=== PATIENT | female | born 1995 | race Caucasian/White ===

== ENCOUNTER → 2022-08-06 | Outpatient (CLI) | payer OTHER, SELFPAY ==
[2022-08-06 13:41] LABS: Absolute Lymphocyte Count 3.39 X10^3/uL (0.83-4.51); Absolute Neutrophil Count 7.5 X10^3/uL (2.0-7.7); Basophil# 0.05 X10^3/uL; Basophil% 0.4 % (0-1); Eosinophil# 0.11 X10^3/uL; Eosinophils% 0.9 % (0-5); Hematocrit 39.3 % (37-47); Hemoglobin 13.3 g/dL (12.0-15.0); Lymphocyte # 3.39 X10^3/ul (0.83-4.51); Lymphocyte % 28.9 % (19-41); Mean Corp Hgb Conc 33.8 g/dL (32-36); Mean Corpuscular Hgb 31.1 pg (27.0-32.0); Mean Platelet Vol. 9.6 fl (6.2-12.0); NRBC Flagged by Analyzer 0 % (0-5); Neutrophil # 7.46 X10^3/uL (2.7-7.7); Neutrophil % 63.5 % (47-70); Platelet Count 356 K/mm3 (150-450); RBC Distribution Width CV 12.6 % (11.6-14.6); RBC Distribution Width SD 42.2 fl (35.1-43.9); Red Blood Count 4.27 M/mm3 (4.2-5.4); White Blood Count 11.7 K/mm3 (4.4-11.0)
[2022-08-06 13:57] LABS: Erythrocyte Sedimentation Rate 5 mm/hr (0-30)
[2022-08-06 14:10] LABS: ALB/GLOB Ratio 1.5 RATIO (0.9-2.4); AST(SGOT) 14 U/L (15-37); Alanine Aminotransfer ALT/SGPT 18 U/L (13-56); Albumin, Serum 4.3 g/dL (3.2-5.0); Alkaline Phosphatase 65 U/L (45-117); Anion Gap 6 (5-15); BUN 11 mg/dL (7-18); BUN/Creat Ratio 14.8 RATIO (10-20); CRP < 2.90 mg/L (0.0-3.0); Calcium,Total 9.2 mg/dL (8.5-10.1); Chloride 108 mmol/L (98-107); Creatinine, Serum 0.74 mg/dL (0.55-1.02); EST Glomerular Filtration Rate 100 mL/min (>60); Est Glom Filt Rate - Afr Amer 121 mL/min (>60); Globulin 2.9 g/dL (2.2-4.2); Glucose 85 mg/dL (74-106); LDH 176 U/L (84-246); Potassium 3.4 mmol/L (3.5-5.1); Protein, Total 7.2 g/dL (6.4-8.2); Sodium Level 139 mmol/L (136-145)
[2022-08-08 12:08] LABS: Anti-Centromere B Ab <0.2 AI (0.0-0.9); Anti-Chromatin <0.2 AI (0.0-0.9); Anti-Jo <0.2 AI (0.0-0.9); Anti-Scleroderma-70 AB <0.2 AI (0.0-0.9); Anti-dsDNA Ab 2 IU/mL (0-9); RNP Ab 0.3 AI (0.0-0.9); SJOGREN'S Anti-SS-A test < 0.2 AI (0.0-0.9); SJOGREN'S Anti-SS-B test < 0.2 AI (0.0-0.9); Smith Ab <0.2 AI (0.0-0.9)
[2022-08-08 15:08] LABS: Endomysial Antibody IgA Negative (Negative); Immunoglobulin A 196 mg/dL (87-352); t-Transglutaminase IgA <2 U/mL (0-3)
[2022-08-11 21:07] LABS: Albumin 3.7 g/dL (2.9-4.4); Alpha-1-Globulins 0.2 g/dL (0.0-0.4); Alpha-2-Globulins 0.8 g/dL (0.4-1.0); Cytoplasmic Ab (C-ANCA) <1:20 titer (Neg:<1:20); Immunoglobulin A 182 mg/dL (87-352); Immunoglobulin E 36 IU/mL (6-495); Immunoglobulin G 682 mg/dL (586-1602); Immunoglobulin M 104 mg/dL (26-217); PROEL- TOTAL PROTEIN 6.7 g/dL (6.0-8.5); Perinuclear Ab (P-ANCA) <1:20 titer (Neg:<1:20)
== END | disposition home or self-care (01) ==
PROVIDERS: PCP Nurse Practitioner Family; Referring Provider Internal Medicine Gastroenterology; Visit Provider Internal Medicine Gastroenterology
DX: R11.10 Vomiting, unspecified (principal); R19.5 Other fecal abnormalities
CPT/HCPCS: 36415; 80053; 82533; 82784; 82785; 83516; 83615; 84165; 85025; 85652; 86140; 86225; 86235; 86255; 86256; 86334

== ENCOUNTER → 2022-08-07 | Outpatient (CLI) | payer OTHER, SELFPAY ==
[2022-08-13 14:10] LABS: Pancreatic Elastase, Fecal 176 (>200)
[2022-08-16 00:06] LABS: Calprotectin, Stool 22 ug/g (0-120)
== END | disposition home or self-care (01) ==
LOC: LABSPEC 15:13
PROVIDERS: PCP Nurse Practitioner Family; Visit Provider Internal Medicine Gastroenterology
DX: R11.10 Vomiting, unspecified (principal); R19.5 Other fecal abnormalities; K58.9 Irritable bowel syndrome, unspecified
CPT/HCPCS: 82653; 83630; 83993; 87177; 87209; 87329; 87493; 87506

== ENCOUNTER → 2022-08-29 | Outpatient (CLI) | payer OTHER, SELFPAY ==
--- NOTE | 2022-08-29 07:32 | RDU_ITS ---
Reason For Study: HTN Right Renal Artery Left Renal Artery Right renal artery ostium 95.7/32.0 Left renal artery ostium 92.6/35.6 RSV/EDV. PSV/EDV. Right renal artery proximal Left renal artery proximal PSV/EDV 119.8/43.0 PSV/EDV. 118.9/37.7 . Right renal artery mid 128.6/49.6 Left renal artery mid 120.5/43.7 PSV/EDV. PSV/EDV . Right renal artery distal Left renal artery distal 89.2/34.2 113.2/45.2 PSV/EDV. PSV/EDV. Right Renal Parenchyma Left Renal Parenchyma Upper Pole Medula 44.1/22.2 Left upper pole medulla 56.6/23.7 PSV/EDV. PSV/EDV . Right upper pole medulla EDR 0.50 . Left upper pole medulla EDR 0.40 . Right upper pole medulla R.I. Left upper pole medulla R.I. 0.58 . 0.50 . UP Cortex 28.1/11.6 PSV/EDV. Upper [place] Cortx 29.8/13.4 PSV/EDV. Left upper pole cortex EDR 0.40 . Right upper pole cortex EDR 0.40 . Left upper pole cortex R.I. 0.59 . Right upper pole cortex R.I. 0.55 . Left lower Pole medulla 50.0/22.6 Right lower Pole medulla 50.7/22.2 PSV/EDV . PSV/EDV . Left lower pole medulla EDR 0.50 . Right lower pole medulla EDR 0.40 . Left lower pole medulla R.I. 0.55 . Right lower pole medulla R.I. Lower Pole Cortx 24.3/10.8 PSV/EDV. 0.56 . Left lower pole cortex EDR 0.40 . Lower Pole Cortex 27.7/11.2 Left lower pole cortex R.I. 0.56 . PSV/EDV. Left Renal Hilar Right lower pole cortex EDR 0.40 . LT Hilar avg 209.0/55.4 PSV/EDV . Right lower pole cortex R.I. 0.60 . Left hilar acceleration time 30 Right Renal Hilar m/sec. Right Hilar avg 103.3/39.7 PSV/EDV. Left Renal Dimensions Right hilar acceleration time 30 Left kidney size 10.39 cm . m/sec. Left cortical dimension 1.54 cm . Right Renal Dimensions Right kidney size 10.63 cm . Right cortical dimension 1.49 cm . Aorta Proximal abdominal aorta 1.55 cm . Proximal abdominal aorta peak systolic velocity is 106.7 cm/sec . Distal abdominal aorta 1.72 cm . Distal abdominal aorta peak systolic velocity is 69.3 cm/sec . VL/Renal Artery Duplex Ultrasound Interpretation Summary Right renal artery patent with normal velocities and no evidence of stenosis. Left renal artery patent with normal velocities and no evidence of stenosis. Right renal vein patent Left renal vein patent Right kidney normal in size Left kidney normal in size Ordering Physician: Henrique Andersen Referring Physician: Naye Giraldo Performed By: Jacob Nieto RVT
== END | disposition home or self-care (01) ==
LOC: CVS 07:31
PROVIDERS: PCP Nurse Practitioner Family; Referring Provider Internal Medicine Gastroenterology; Visit Provider Internal Medicine Gastroenterology
DX: R19.5 Other fecal abnormalities (principal); R11.10 Vomiting, unspecified; I10 Essential (primary) hypertension
CPT/HCPCS: 93975

== ENCOUNTER → 2022-09-02 | Outpatient (CLI) | payer OTHER, SELFPAY | END | disposition home or self-care (01) | PROVIDERS: PCP Nurse Practitioner Family; Referring Provider Internal Medicine Gastroenterology; Visit Provider Internal Medicine Gastroenterology | DX: R19.5 Other fecal abnormalities (principal) | CPT/HCPCS: 36415 ==

== ENCOUNTER → 2022-12-08 | Outpatient (CLI) | payer OTHER, SELFPAY ==
[2022-12-08 15:34] LABS: EXAGEN MAILED SPECIMEN
[2022-12-08 17:33] LABS: Absolute Lymphocyte Count 3.67 X10^3/uL (0.83-4.51); Absolute Neutrophil Count 11.3 X10^3/uL (2.0-7.7); Basophil# 0.06 X10^3/uL; Basophil% 0.4 % (0-1); Eosinophil# 0.03 X10^3/uL; Eosinophils% 0.2 % (0-5); Hematocrit 40.9 % (37-47); Hemoglobin 13.7 g/dL (12.0-15.0); Lymphocyte # 3.67 X10^3/ul (0.83-4.51); Lymphocyte % 22.7 % (19-41); Mean Corp Hgb Conc 33.5 g/dL (32-36); Mean Corpuscular Hgb 31.1 pg (27.0-32.0); Mean Platelet Vol. 9.6 fl (6.2-12.0); Monocyte# 1.02 X10^3/uL; Monocyte% 6.3 % (0-10); NRBC Flagged by Analyzer 0 % (0-5); Neutrophil # 11.33 X10^3/uL (2.7-7.7); Neutrophil % 70.1 % (47-70); Platelet Count 397 K/mm3 (150-450); RBC Distribution Width CV 13.3 % (11.6-14.6); RBC Distribution Width SD 45.8 fl (35.1-43.9); White Blood Count 16.2 K/mm3 (4.4-11.0)
[2022-12-08 18:05] LABS: ALB/GLOB Ratio 1.2 RATIO (0.9-2.4); AST(SGOT) 17 U/L (15-37); Alanine Aminotransfer ALT/SGPT 22 U/L (13-56); Albumin, Serum 4.5 g/dL (3.2-5.0); Alkaline Phosphatase 74 U/L (45-117); Anion Gap 5 (5-15); BUN 7 mg/dL (7-18); BUN/Creat Ratio 9.8 RATIO (10-20); Calcium,Total 9.9 mg/dL (8.5-10.1); Chloride 106 mmol/L (98-107); Creatinine, Serum 0.71 mg/dL (0.55-1.02); EST Glomerular Filtration Rate 105 mL/min (>60); Est Glom Filt Rate - Afr Amer 126 mL/min (>60); Globulin 3.7 g/dL (2.2-4.2); Glucose 87 mg/dL (74-106); Potassium 3.1 mmol/L (3.5-5.1); Protein, Total 8.2 g/dL (6.4-8.2); Sodium Level 138 mmol/L (136-145)
[2022-12-08 18:06] LABS: Protein, Urine (Random) < 6.0 mg/dL (<11.9); Protein:Creat Ratio 136 mg/g CRE (0-200)
[2022-12-08 18:10] LABS: Color, Urine Yellow (Yellow); Glucose, Dipstick Normal (Normal); Ketone-Dipstick 5 mg/dl (Negative); Leukocyte Esterase-Dipstick Negative /ul (Negative); Nitrite-Dipstick Negative (Negative); Occult Blood-Urine 50 /ul (Negative); Protein-Dipstick Negative (Negative); Urine Bilirubin Dipstick Negative (Negative); Urine Clarity Clear (Clear); Urine Urobilinogen Normal (Normal); Urine pH 6.5 (5.0 - 8.0)
[2022-12-08 18:29] LABS: Hepatitis B Surface Antibody Non-Reactive; Hepatitis B Surface Antigen Non-Reactive (Nonreactive); Hepatitis C Antibody Non-Reactive (Nonreactive)
== END | disposition home or self-care (01) ==
PROVIDERS: PCP Nurse Practitioner Family; Referring Provider Internal Medicine Rheumatology; Visit Provider Internal Medicine Rheumatology
DX: M06.4 Inflammatory polyarthropathy (principal); R76.8 Other specified abnormal immunological findings in serum; F32.A Depression, unspecified; F41.0 Panic disorder [episodic paroxysmal anxiety]
CPT/HCPCS: 36415; 80053; 81002; 82570; 84156; 85025; 86706; 86803; 87340

== ENCOUNTER → 2023-01-19 | Outpatient (CLI) | payer OTHER, SELFPAY ==
[2023-01-19 15:20] LABS: Absolute Lymphocyte Count 4.26 X10^3/uL (0.83-4.51); Basophil# 0.08 X10^3/uL; Basophil% 0.4 % (0-1); Eosinophil# 0.04 X10^3/uL; Eosinophils% 0.2 % (0-5); Hematocrit 41.5 % (37-47); Hemoglobin 13.6 g/dL (12.0-15.0); Lymphocyte # 4.26 X10^3/ul (0.83-4.51); Lymphocyte % 22.8 % (19-41); Mean Corp Hgb Conc 32.8 g/dL (32-36); Mean Corpuscular Volume 94.5 fL (81-99); Mean Platelet Vol. 10.1 fl (6.2-12.0); Monocyte# 1.23 X10^3/uL; Monocyte% 6.6 % (0-10); NRBC Flagged by Analyzer 0 % (0-5); Neutrophil # 12.98 X10^3/uL (2.7-7.7); Neutrophil % 69.5 % (47-70); Platelet Count 378 K/mm3 (150-450); RBC Distribution Width CV 13.4 % (11.6-14.6); RBC Distribution Width SD 47.1 fl (35.1-43.9); Red Blood Count 4.39 M/mm3 (4.2-5.4); White Blood Count 18.7 K/mm3 (4.4-11.0)
[2023-01-19 15:53] LABS: ALB/GLOB Ratio 1.4 RATIO (0.9-2.4); AST(SGOT) 17 U/L (15-37); Alanine Aminotransfer ALT/SGPT 17 U/L (13-56); Albumin, Serum 4.2 g/dL (3.2-5.0); Alkaline Phosphatase 68 U/L (45-117); Anion Gap 7 (5-15); BUN 9 mg/dL (7-18); BUN/Creat Ratio 11.8 RATIO (10-20); Calcium,Total 9.6 mg/dL (8.5-10.1); Chloride 105 mmol/L (98-107); Creatinine, Serum 0.76 mg/dL (0.55-1.02); EST Glomerular Filtration Rate 97 mL/min (>60); Est Glom Filt Rate - Afr Amer 117 mL/min (>60); Globulin 3.1 g/dL (2.2-4.2); Glucose 85 mg/dL (74-106); Potassium 3.2 mmol/L (3.5-5.1); Protein, Total 7.3 g/dL (6.4-8.2); Sodium Level 137 mmol/L (136-145)
== END | disposition home or self-care (01) ==
LOC: MTLAB 11:37
PROVIDERS: PCP Nurse Practitioner Family; Referring Provider Internal Medicine Rheumatology; Visit Provider Internal Medicine Rheumatology
DX: M06.4 Inflammatory polyarthropathy (principal); R76.8 Other specified abnormal immunological findings in serum
CPT/HCPCS: 36415; 80053; 85025

== ENCOUNTER → 2023-04-13 | Outpatient (CLI) | payer OTHER, SELFPAY ==
--- OUTSIDE RECORDS SUMMARY | 2023-04-13 14:07 | XMS RPT_ITS | CCD ---
Author Name Unknown Address [address] [facility] [address] [place] [address] Organization [facility] Care Team Providers Care Transportation Maintenance Worker Name Role Phone BRIGID CARBAJAL, NAYE Primary Care Physician BRIGID LAW FIRM RECEPTIONIST-IMPREGNATOR [employer], NAYE Attending Unavail able LORSON LAW FIRM RECEPTIONIST-IMPREGNATOR [employer], NAYE Primary Care Unavail able ADDIE MCGOVERN, JEZ Attending Unavailable LORSON LAW FIR[employer] RECEPTIONIST-IMPREGNATOR [employer], NAYE Primary Care Unavail able LORSON LAW FIR[employer] RECEPTIONIST-IMPREGNATOR [employer], NAYE Attending Unavail able LORSON [employer] FIRM RECEPTIONIST-IMPREGNATOR [employer], NAYE Primary Care Unavail able LORSON [employer] FIRM RECEPTIONIST-IMPREGNATOR [employer], NAYE Attending Unavail able LORSON [employer] FIRM RECEPTIONIST-IMPREGNATOR [employer], NAYE Primary Care Unavail able LORSON [employer] FIRM RECEPTIONIST-IMPREGNATOR [employer], NAYE Attending Unavail able LORSON LAW FIRM RECEPTIONIST-IMPREGNATOR [employer], NAYE Primary Care Unavail able LORSON [employer] RECEPTIONIST-IMPREGNATOR [employer], NAYE Referring Unavail able ANA MCGOVERN, DR HUNTLEY Attending Unavailable LORSON [employer] FIR[employer] RECEPTIONIST-IMPREGNATOR [employer], NAYE Primary Care Unavail able LORSON [employer] FIR[employer] RECEPTIONIST-IMPREGNATOR [employer], NAYE Attending Unavail able LORSON [employer] FIRM RECEPTIONIST-IMPREGNATOR [employer], NAYE Primary Care Unavail able Medications Current Medications Medication Drug Class(es) Dates Sig (Normalized) Sig (Original) citalopram 20 mg oral tablet (1 source) Serotonin Reuptake Inhibitor Start: 05-14-2022 citalopram 20 mg oral tablet Dose : 20 mg = 1 tab(s), Oral, qDay, # 30 tab(s), 5 Refill(s), Pharmacy: [facility] #[id number], 173.6, cm, 05/14/22 14:21:00 EDT, Height Start Date: 05/14/22 Status: Ordered hydrOXYzine hydrochloride 10 mg oral tablet (2 sources) Antihistamine Start: 02-12-2022 End: 06-12-2022 hydrOXYzine hydrochloride 10 mg oral tablet Dose : 20 mg = 2 tab(s), Oral, QID, PRN as needed for anxiety, X 30 day(s), # 90 tab(s), 3 Refill(s), 06/12/22 13:55:00 EDT, [facility]acy: [facility] #[id number], 173.6, cm, 02/12/22 13:43:00 EST, Height Start Date: 02/12/22 Stop Date: 06/12/22 Status: Ordered meclizine hydrochloride 25 mg oral tablet (2 sources) Antiemetic Start: 05-14-2022 End: 06-13-2022 meclizine 25 mg oral tablet Dose : 25 mg = 1 tab(s), Oral, TID, PRN as needed for dizziness, X 30 day(s), # 30 tab(s), 0 Refill(s), 06/13/22 15:04:00 EDT, [facility]acy: [facility] #[id number], 173.6, cm, 05/14/22 14:21:00 EDT, Height Start Date: 05/14/22 Stop Date: 06/13/22 Status: Ordered omeprazole 40 mg delayed release oral capsule (3 sources) Proton Pump Inhibitor Start: 06-10-2022 omeprazole 40 mg oral delayed release capsule Dose : 40 mg = 1 cap(s), Oral, qDay, # 30 cap(s), 1 Refill(s), [facility]acy: [facility] #[id number], 173.6, cm, 05/14/22 14:21:00 EDT, Height, kg, 05/29/22 13:07:00 EDT, Dosing Weight Start Date: 06/10/22 Status: Ordered Completed/Discontinued Medications Medication Drug Class(es) Dates Sig (Normalized) Sig (Original) Depo-Provera Contraceptive 150 mg/mL intramuscular suspension (6 sources) Start: 09-30-2021 inject 1 mL by intramuscular injection every three months Depo-Provera Contraceptive 150 mg/mL intramuscular suspension Dose : 150 mg = 1 mL, Intramuscular, q3mo, # 1 mL, 3 Refill(s), [facility]: [facility] #[id number], 172, cm, 09/30/21 13:32:00 EDT, Height, kg, 09/30/21 13:32:00 EDT, Dosing Weight Start Date: 09/30/21 Status: Ordered Problems Active Problems Problem Classification Problem Date Documented Date Episodic/Chronic Anxiety disorders (8 sources) Mixed anxiety and depressive disorder; Translations: [Panic attack] 11-11-2021 Chronic Cardiac dysrhythmias (4 sources) Palpitations 02-12-2022 Episodic Conditions associated with dizziness or vertigo (7 sources) Benign paroxysmal positional vertigo; Translations: [Dizziness] 05-14-2022 Episodic Contraceptive and procreative management (4 sources) Depot contraceptive status 11-25-2021 Episodic Genitourinary symptoms and ill-defined conditions (2 sources) Hematuria, unspecified; Translations: [Hematuria, unspecified] Onset: 05-29-2022 Episodic Nausea and vomiting (3 sources) Vomiting; Translations: [Vomiting, unspecified] Onset: 05-14-2022 Episodic Other ear and sense organ disorders (4 sources) Impacted cerumen 05-14-2022 Episodic Other skin disorders (4 sources) Eruption 02-12-2022 Episodic Substance-related disorders (6 sources) Nicotine dependence 09-08-2018 Chronic Unclassified (20 sources) Patient encounter status 09-18-2020 Past or Other Problems Problem Classification Problem Date Documented Date Episodic/Chronic Immunizations and screening for infectious disease (2 sources) Encounter for screening for infections with a predominantly sexual mode of transmission; Translations: [Encounter for screening for infections with a predominantly sexual mode of transmission] Onset: 10-02-2021 Episodic Other screening for suspected conditions (not mental disorders or infectious disease) (6 sources) Encounter for screening for other suspected endocrine disorder; Translations: [Encounter for screening for diabetes mellitus] Onset: 10-16-2021 Episodic Results Test Name Value Interpretation Reference Range Facil ity Vital Signs Date Time Vital Sign Value Performing Clinician Lesia smith 05-14-2022 06:28-0400 Heart rate 102 /min Fullscreen DO [facility] 05-14-2022 06:28-0400 Respiratory rate 18 /min Fullscreen DO [facility] 05-14-2022 04:30-0400 Body temperature 98.06 [degF] Fullscreen DO [facility] 05-14-2022 04:30-0400 Diastolic Blood Pressure Non-Invasive 90 1 JEZ REAL DO [facility] 05-14-2022 04:30-0400 Heart rate 120 /min JEZ REAL DO [facility] 05-14-2022 04:30-0400 Respiratory rate 18 /min JEZ REAL DO [facility] 05-14-2022 04:30-0400 Systolic Blood Pressure Non-Invasive 133 1 JEZ REAL DO [facility] Encounters Encounter Date Encounter Type Care Provider Facility Start: 06-12-2022 End: 06-13-2022 ambulatory NAYE RAINEY APRN-KASEY Facility:A Start: 06-12-2022 End: 06-12-2022 Patient encounter procedure NAYE RAINEY APRN-KASEY [facility] Start: 05-29-2022 End: 06-03-[address] AUDI PEREZ DO Facility:B Start: 05-29-2022 End: 06-02-[address] AUDI PEREZ DO [facility] Start: 05-16-2022 End: 07-08-2022 ambulatory NAYE RAINEY APRN-IMPREGNATOR [employer] Facility:B Start: 05-16-2022 End: 07-08-2022 Physical therapy management NAYE RAINEY APRN-IMPREGNATOR [employer] [facility] Start: 05-14-2022 End: 05-14-2022 Emergency department patient visit JEZ REAL DO Facility:B Start: 05-14-2022 End: 05-14-2022 Emergency department patient visit JEZ REAL DO [facility] Start: 02-12-2022 End: 02-13-2022 ambulatory NAYE RAINEY LAW FIR[employer] RECEPTIONIST-IMPREGNATOR [employer] Facility:B Start: 10-16-2021 End: 10-21-2021 ambulatory NAYE RAINEY LAW [employer] RECEPTIONIST-IMPREGNATOR [employer] Facility:B Start: 10-16-2021 End: 10-20-2021 Outreach Lab NAYE RAINEY LAW FIR[employer] RECEPTIONIST-IMPREGNATOR [employer] [facility] Start: 10-02-2021 End: 10-07-2021 ambulatory NAYE RAINEY [employer] RECEPTIONIST-IMPREGNATOR [employer] Facility:B Start: 10-02-2021 End: 10-06-2021 Outreach Lab NAYE RAINEY LAW FIRM RECEPTIONIST-IMPREGNATOR [employer] [facility] Procedures Date Procedure Procedure Detail Performing Clinician Tonsillectomy and adenoidectomy NAYE BRIGID LAW FIR[employer] RECEPTIONIST-IMPREGNATOR [employer] Immunizations Immunization Date Immunization Notes Care Provider Fa [facility] 04-12-2021 SARS-CoV-2 (COVID-19 ) mRNA-1273 vaccine NAYE BRIGID LAW [employer] RECEPTIONIST-IMPREGNATOR [employer] [facility] 03-15-2021 SARS-CoV-2 (COVID-19 ) mRNA-1273 vaccine NAYE BRIGID LAW FIRM RECEPTIONIST-IMPREGNATOR [employer] [facility] 09-13-2018 Human Papillomavirus 9-valent vaccine; Translations: [Gardasil 9] NAYE RAINEY LAW FIRM RECEPTIONIST-IMPREGNATOR [employer] [facility] 06-17-2018 Human Papillomavirus Quadval NAYE BRIGID LAW FIR[employer] RECEPTIONIST-IMPREGNATOR [employer] [facility] Payers Date Payer Category Payer Unknown [id number] 1995 Unknown [id number] [id number] 1995 Unknown [id number] 2.16.8 [id number] 1995 Unknown [id number] 2.16.8 [id number] 1995 Unknown [id number] 2.16.8 [id number] 1995 Unknown [id number] 2.16.8 [id number] 1995 Unknown [id number] 2.16.8 [id number] 1995 Unknown [id number] 2.16.8 [id number] Social History Date Type Detail Facility Start: 09-08-2018 Tobacco smoking status Heavy t obacco smoker (finding) [facility] Sex Assigned At Female [facility] Functional Status Date Assessment Result Facility 05-14-2022 Functional Status Assistive Device None A [facility] 05-14-2022 Functional Status Standard Safet y ID band on, Call device within reach, Bed in low position [facility] Mental Status Date Assessment Result Facility 05-14-2022 Mental Status Orientation Oriented x 4 [facility] 05-14-2022 Mental Status [facility] Clinical Notes 05-14-2022 to 06-12-2022 Laboratory Note Date & Type Note Facility 06-12-2022 Note Date of Service June 12, 2022 Procedure Name Head up tilt table test Referring Provider Naye Rainey (LAW FIRM RECEPTIONIST-IMPREGNATOR [employer]) Consent Informed consent was obtained by nursing personnel Indication Dizziness Location Noninvasive cardiac testing Technique This is a 26-year-old female referred over for head-up tilt table test for ongoing lightheadedness dizziness, near syncope by primary care. Patient presenting for head-up tilt table test and June 12, 2022 in a fasting well-hydrated state. Patient is currently working at [employer] with frequent seated breaks. Patient in for head up tilt table test on June 12, 2022 in a fasting well-hydrated state. Presenting rhythm was normal sinus rhythm at a heart rate of 97 bpm. Blood pressure 112/64. Upon rising the patient's heart rate was 120 bpm and normal sinus rhythm with a blood pressure of 118/70. At the 4-minute kizzy patient's heart rate was 120 bpm and sinus tachycardia with a blood pressure of 118/74. At the 8-minute kizzy patient's heart was 100 bpm and normal sinus rhythm with a blood pressure of 112/80. At the 12-minute kizzy patient's heart rate is 106 bpm normal sinus rhythm/sinus tachycardia blood pressure 122/80. At the 16-minute kizzy patient's heart rate is 106 bpm and sinus tachycardia blood pressure of 122/80. At the 20-minute kizzy patient's heart was 112 beats minute sinus tachycardia, blood pressure 126/78. Patient had minimal symptoms with the first treatment testing, most these include dizziness, better, After a long discussion with the patient. She is also agreeable to increase overall hydrating fluids every day and decrease electrolytes/energy drinks. Digitally Signed by RUBY FOLEY on 06/12/2022 11:24 PM [facility] 06-01-2022 Note . MICRO - Microbiology PROCEDURE: Urine Culture [*1] SOURCE: Urine, Clean Catch BODY SITE: COLLECTED DATE/TIME: 05/29/2022 16:54 EDT RECEIVED DATE/TIME: 05/30/2022 14:38 EDT START DATE/TIME: 05/30/2022 14:38 EDT FREE TEXT SOURCE: FINAL REPORTS Final Report [] Verified Date/Time/Personnel: 06/01/2022 07:38 EDT No growth at 48 hours. PRELIMINARY REPORTS Preliminary Report [] Verified Date/Time/Personnel: 05/31/2022 10:09 EDT No growth to date Performing Locations *1: This test was performed at: [facility], [address] [place] [address], [facility] , [facility] ([place]) 05-16-2022 Note . MICRO - Microbiology PROCEDURE: Urine Culture [*1] SOURCE: Urine, Clean Catch BODY SITE: COLLECTED DATE/TIME: 05/14/2022 05:46 EDT RECEIVED DATE/TIME: 05/14/2022 14:50 EDT START DATE/TIME: 05/14/2022 14:50 EDT FREE TEXT SOURCE: FINAL REPORTS Final Report [] Verified Date/Time/Personnel: 05/16/2022 07:53 EDT No growth at 48 hours. PRELIMINARY REPORTS Preliminary Report [] Verified Date/Time/Personnel: 05/15/2022 09:08 EDT No growth to date Performing Locations *1: This test was performed at: [facility], [address] [place] [address], [id number] , [facility] ([place]) 05-14-2022 Hospital Discharge instructions Patient Education 05/14/2022 04:45:54 Vomiting (Adult) Vomiting (Adult) Vomiting is a common symptom that may be due to different causes. These include gastroenteritis ( stomach flu ), food poisoning and gastritis. There are other more serious causes of vomiting which may be hard to diagnose early in the illness. Therefore, it is important to watch for the warning signs listed below. The main danger from repeated vomiting is dehydration. This is due to excess loss of water and minerals from the body. When this occurs, your body fluids must be replaced. Home care If symptoms are severe, rest at home for the next 24 hours. Because your symptoms may be from an infection, wash your hands often and well. If soap and water are not available, use alcohol-based train station agent to keep from spreading the infection to others. Wash your hands for at least 20 seconds. Humming the happy birthday song twice while you wash is an easy way to make sure you've washed for 20 seconds. Wash your hands after using the toilet, before and after preparing food, before eating food, after changing a diaper, cleaning a wound, caring for a sick person, and blowing your nose, coughing, or sneezing. You should also wash your hands after caring for someone who is sick, touching pet food, or treats, and touching an animal, or animal waste. You may use acetaminophen or NSAID medicines like ibuprofen or naproxen to control fever, unless another medicine was prescribed. If you have chronic liver or kidney disease or ever had a stomach ulcer or gastrointestinal bleeding, talk with your doctor before using these medicines. Aspirin should never be used in anyone under 18 years of age who is ill with a fever. It may cause severe liver damage. Don't use NSAID medicines if you are already taking one for another condition (like arthritis) or are on aspirin (such as for heart disease, or after a stroke) Don't use tobacco and or drink alcohol, which may worsen your symptoms. If medicines for vomiting were prescribed, take as directed. Once vomiting stops, then follow these guidelines: During the first 12 to 24 hours follow the diet below: Fruit juices. Apple, grape juice, clear fruit drinks, and electrolyte replacement drinks. Beverages. Soft drinks without caffeine; mineral water (plain or flavored), decaffeinated tea and coffee. Soups. Clear broth and bouillon Desserts. Plain gelatin, ice pops, and fruit juice bars. As you feel better, you may add 6 to 8 ounces of yogurt per day. During the next 24 hours you may add the following to the above: Hot cereal, plain toast, bread, rolls, crackers Plain noodles, rice, mashed potatoes, chicken noodle or rice soup Unsweetened canned fruit such as applesauce, bananas (avoid pineapple and citrus) Limit caffeine and chocolate. No spices or seasonings except salt. During the next 24 hours: Gradually resume a normal diet, as you feel better and your symptoms lessen. Follow-up care Follow up with your healthcare provider, or as advised. When to seek medical advice Call your healthcare provider right away if any of these occur: Constant right-sided lower belly pain or increasing general belly pain Continued vomiting (unable to keep liquids down) for 24 hours Vomiting blood or coffee grounds Swollen belly Frequent diarrhea (more than 5 times a day); blood (red or black color) or mucus in diarrhea Reduced urine output or extreme thirst Weakness, dizziness or fainting Unusually drowsy or confused Fever of 100.4 F (38 C) oral or higher, or as directed Yellow color of the eyes or skin [id number] [employer]. [address] [place] [address], [place] [address]. All rights reserved. This information is not intended as a substitute for professional medical care. Always follow your healthcare professional's instructions. Follow Up Care 05/14/2022 04:29:32 With:Go to emergency room if symptoms worsen Address:Unknown When:2-4 days With:NAYE RAINEY Address: [address] [place] [address] [phone] When:2-4 days [facility] 05-14-2022 Note Discharge Instructions Thank you for allowing [facility] to assist you with your healthcare needs. The following is important discharge information regarding your hospital visit. Diagnosis from Today's Visit Vomiting Vomiting What to Do Next Instructions from Your Care Team Take Zofran as prescribed for nausea. Drink plenty of fluids. Return emergency department if experience worsening symptoms, inability to eat or drink, abdominal pain, or any other care concern. No qualifying data available. Post Acute Orders No qualifying data available. You Need to Schedule the Following Appointments Follow Up with Go to emergency room if symptoms worsen When Within 2-4 days Follow Up with NAYE RAINEY When Within 2-4 days Where: [address] [place] [address] [phone] Allergies [facility] Medications Please ask your primary doctor or pharmacist before taking any other medication not listed, including over the counter drugs, herbal medications, vitamins and or supplements as they may interact with your home medications. What How Much When Why Instructions Last Dose New ondansetron (Zofran 4 mg oral tablet) 1 tab(s) by mouth Every 8 hours as needed for Nausea/Vomiting Vomiting Duration: 3 Days Printed Prescription Unchanged citalopram (citalopram 10 mg oral tablet) 1 tab(s) by mouth Once a day Unchanged hydrOXYzine (hydrOXYzine hydrochloride 10 mg oral tablet) 2 tab(s) by mouth Four (4) times a day as needed for as needed for anxiety Duration: 30 Days Unchanged medroxyPROGESTERone (Depo-Provera Contraceptive 150 mg/ mL intramuscular suspension) 1 Milliliter Intramuscular Every 3 months Please take this list to your next doctor s visit. Bring all medications you take, including over the counter medications, herbals and other supplements with you to your doctor s visit. Patients and families are reminded to discard old lists and to update any records with all medication providers or retail pharmacies. Education Materials Vomiting (Adult) Vomiting is a common symptom that may be due to different causes. These include gastroenteritis ( stomach flu ), food poisoning and gastritis. There are other more serious causes of vomiting which may be hard to diagnose early in the illness. Therefore, it is important to watch for the warning signs listed below. The main danger from repeated vomiting is dehydration. This is due to excess loss of water and minerals from the body. When this occurs, your body fluids must be replaced. Home care If symptoms are severe, rest at home for the next 24 hours. Because your symptoms may be from an infection, wash your hands often and well. If soap and water are not available, use alcohol-based train station agent to keep from spreading the infection to others. Wash your hands for at least 20 seconds. Humming the happy birthday song twice while you wash is an easy way to make sure you've washed for 20 seconds. Wash your hands after using the toilet, before and after preparing food, before eating food, after changing a diaper, cleaning a wound, caring for a sick person, and blowing your nose, coughing, or sneezing. You should also wash your hands after caring for someone who is sick, touching pet food, or treats, and touching an animal, or animal waste. You may use acetaminophen or NSAID medicines like ibuprofen or naproxen to control fever, unless another medicine was prescribed. If you have chronic liver or kidney disease or ever had a stomach ulcer or gastrointestinal bleeding, talk with your doctor before using these medicines. Aspirin should never be used in anyone under 18 years of age who is ill with a fever. It may cause severe liver damage. Don't use NSAID medicines if you are already taking one for another condition (like arthritis) or are on aspirin (such as for heart disease, or after a stroke) Don't use tobacco and or drink alcohol, which may worsen your symptoms. If medicines for vomiting were prescribed, take as directed. Once vomiting stops, then follow these guidelines: During the first 12 to 24 hours follow the diet below: Fruit juices. Apple, grape juice, clear fruit drinks, and electrolyte replacement drinks. Beverages. Soft drinks without caffeine; mineral water (plain or flavored), decaffeinated tea and coffee. Soups. Clear broth and bouillon Desserts. Plain gelatin, ice pops, and fruit juice bars. As you feel better, you may add 6 to 8 ounces of yogurt per day. During the next 24 hours you may add the following to the above: Hot cereal, plain toast, bread, rolls, crackers Plain noodles, rice, mashed potatoes, chicken noodle or rice soup Unsweetened canned fruit such as applesauce, bananas (avoid pineapple and citrus) Limit caffeine and chocolate. No spices or seasonings except salt. During the next 24 hours: Gradually resume a normal diet, as you feel better and your symptoms lessen. Follow-up care Follow up with your healthcare provider, or as advised. When to seek medical advice Call your healthcare provider right away if any of these occur: Constant right-sided lower belly pain or increasing general belly pain Continued vomiting (unable to keep liquids down) for 24 hours Vomiting blood or coffee grounds Swollen belly Frequent diarrhea (more than 5 times a day); blood (red or black color) or mucus in diarrhea Reduced urine output or extreme thirst Weakness, dizziness or fainting Unusually drowsy or confused Fever of 100.4 F (38 C) oral or higher, or as directed Yellow color of the eyes or skin [id number] [employer]. [address] [place] [address]. All rights reserved. This information is not intended as a substitute for professional medical care. Always follow your healthcare professional's instructions. Additional Information VACCINATE! IT SAVES LIVES! Members of the community who have not yet received the COVID-19 vaccine and would like to receive it can visit one of [facility] vaccine clinics. There are many vaccine clinic locations within the [facility]. For locations and available times, please visit [email or web address].[email or web address] [email or web address] It is important to note that some COVID mobile vaccine clinics are held outdoors and may be canceled in rainy or stormy conditions. To learn more about pediatric vaccinations (ages 5-11), we invite you to visit the [facility] webpage. https://www.[email or web address].org/pag es/9276-Lmdey-Ftwncjvxnzw-Frequent kf-Xwnfm-Msdrdnvgg.html To learn more about the COVID-19 vaccine, we invite you to visit the CDC website for a list of frequently asked questions. https://www.cdc.gov/coronavirus/-ncov/vaccines/faq.html [facility] [employer] Patient Portal Access Instructions: Stay connected with your healthcare team and access your personal medical information anytime with the [facility] Patient Portal. If you would like a full copy of your medical records please contact the [facility] Medical Records Department Thursday through Thursday between 8a.m. and 4:30p.m. Please follow the directions below to access the portal: 1.Access the email account you provided upon registration to the [facility].2.Look for an invitation email from [facility].3.Open the email and access the invitation link: Accept Invitation to [employer].Fill in the required peacock to create your account. Sign into [email or web address] with your username and password that you created in the above steps to stay up to date. You can then view a summary of results, a summary of your visits, and the ability to download your summaries to your computer or send the information securely to a physician. Remember that your healthcare information is confidential, so carefully consider who you will allow to register on the [facility] Patient Portal for access to your information. You can also access the [facility] Patient Portal on the [employer] ad[employer]fo. Simply click on Health Records under Health Data and then click on the [employer] logo. HOW TO SAFELY DISPOSE OF PRESCRIPTION MEDICATIONS Please use one of the following methods to safely dispose of your unused medications. 1.Use a drug disposal kit: the drug disposal pouch allows you to safely discard your old and unused drugs. Ask your nurse to give you one when you are discharged.2.Visit a local take-back location: Many local pharmacies and police departments have programs that collect old and unwanted prescription drugs. Call your local pharmacy or go to http://bit.ly/1N1Hn2m to find one close to you.3.Make use of household items: Use cat litter or old coffee grounds to dispose medications if other options are not available. Mix your drugs with these household products, seal them in an airtight container and throw it into the garbage. Call [facility]: [phone] to be sure your drugs can be disposed of in this way. Some medicines may require a different approach.4.Never flush your medications down the toilet. IF YOU HAVE BEEN PRESCRIBED AN OPIOIDS FOR PAIN If you have been prescribed an opioid (such as hydrocodone, oxycodone or morphine), it is critical to understand the possible side effects and risks of opioid pain medications. Even when taken as directed, opioids can have several side effects including: Tolerance, meaning you might need to take more of a medication for the same pain relief. Nausea, vomiting and/or constipation. Sleepiness, dizziness, dry mouth, confusion, depression or itching. Physical dependence, meaning you have withdrawal symptoms when a medication is stopped ? this can develop within a few days. KNOW YOUR RESPONSIBILITIES It is important to know exactly how much and how often to take the opioid pain medications you are prescribed. Never take opioids in higher amounts or more often than prescribed. Do not combine opioids with alcohol or other drugs that cause drowsiness, such as benzodiazepines, also known as benzos, including diazepam and alprazolam, muscle relaxants or sleep aids. Never sell or share prescription opioids. This is illegal. Store opioids in a secure place and out of reach of others (including children, family, friends and visitors). The last page(s) of this document has been signed and retained as a CHART COPY Signatures Patient Education Materials Vomiting (Adult) Medication Leaflets My discharge plan and instructions have been reviewed and explained to me and I,WALTER HEATH understand my current condition and have read and understand these discharge instructions. I have received a written copy of the plan/instructions. If I have questions, I am aware that I should contact my doctor. Patient/Cake Puller Signature: Date/Time: Relationship to Patient: ___ Witness Name/Signature: Date/Time: [facility] Evaluation + Plan note Future Appointments Appointment Date:10/16/2021 09:15:00 AM Scheduled Provider: [facility] Appointment Type:PC Nurse Lab Appointment Date:11/25/2021 01:15:00 PM Scheduled Provider: [facility] Appointment Type:PC Nurse Future Scheduled TestsPathology Biostatistician Request 09/30/21Thyroid Stimulating Hormone 09/30/21Free T4 09/30/21Lipid Profile 09/30/21Complete Metabolic Panel 09/30/21 [facility] Evaluation + Plan note Future Appointments Appointment Date:11/25/2021 01:15:00 PM Scheduled Provider: [facility] Appointment Type:PC Nurse [facility] Evaluation + Plan note Future Appointments Appointment Date:08/13/2022 01:30:00 PM Scheduled Provider:NAYE RAINEY Location:[facility] Appointment Type:PC OV Diagnostic Tests PendingUrine Culture 05/14/22 [facility] Evaluation + Plan note Future Appointments Appointment Date:06/11/2022 03:00:00 PM Scheduled Provider:NAYE RAINEY Location:[facility] Appointment Type:PC OV Appointment Date:06/12/2022 01:00:00 PM Scheduled Provider: Location:[facility] Appointment Type:HL Tilt Table Appointment Date:08/13/2022 01:30:00 PM Scheduled Provider:NAYE RAINEY [facility] Appointment Type:PC OV [facility] Evaluation + Plan note Future Appointments Appointment Date:07/16/2022 02:30:00 PM Scheduled Provider:NAYE RAINEY Location:[facility] Appointment Type:PC OV Follow Up Appointment Date:08/13/2022 01:30:00 PM Scheduled Provider:NAYE RAINEY Location:[facility] Appointment Type:PC OV [facility] Hospital course Narrative No data available for this section [facility] Hospital Discharge instructions No data available for this section [facility] Progress note No data available for this section [facility] Summary Purpose Family History No Family History Records FoundNo Family History Records Found Advance Directives No Advanced Directives Records FoundNo Advanced Directives Records Found Additional Source Comments INFORMATION SOURCE (unrecogn ized section and content) DATE CREATED AUTHOR AUTHOR'S ORGANIZ ATION 07/09/2022 [facility] ([place]) Care Team (unrecognized sect ion and content) Care Team Personnel Name: NAYE RAINEY Position: P4 Advanced Practice Nurse Med Service: Active Provider Member Role: Primary Care Physician Address: Address: [address] [place] [address] Care Team Related Persons Name: DECLINED, Name: KORINA HERNANDEZ Address: Home [address] [place], [place] [phone] Care Team Personnel Name: NAYE RAINEY Position: P4 Advanced Practice Nurse Member Role: Primary Care Physician Address: Address: [address] [place] [address] Care Team Related Persons Name: DECLINED, Name: KORINA HERNANDEZ Address: Home [address] [place] [phone] Patient Care team informatio n (unrecognized section and content) Care Team Personnel Name: NAYE RAINEY Position: P4 Advanced Family Assessment Worker Member Role: Primary Care Physician Address: Address: [address] [place], [place] [id number]- Name: Corinna Valencia RN Position: AO RN Member Role: ED RN Name: JEZ REAL DO Position: JAJA ED Physician Member Role: Attending Physician Address: Address: [address] [place] [address] Care Team Related Persons Name: DECLINED, Name: KORINA HERNANDEZ Address: Home [address] [place] [phone] Care Team Personnel Name: NAYE RAINEY Position: P4 Advanced Family Assessment Worker Member Role: Primary Care Physician Address: Address: [facility] [place] [address] Care Team Related Persons Name: DECLINED, Name: KORINA HERNANDEZ Address: [address] [phone] Care Team Personnel Name: NAYE RAINEY Position: P4 Advanced Family Assessment Worker Member Role: Primary Care Physician Address: Address: [facility] [address] Care Team Related Persons Name: DECLINED, Name: KORINA HERNANDEZ Address: [place] [phone] Care Team Personnel Name: NAYE RAINEY Position: P4 Advanced Family Assessment Worker Member Role: Primary Care Physician Address: Address: [address] [place] [address] Care Team Related Persons Name: DECLINED, Name: KORINA HERNANDEZ Address: Home [address] [place], [place] [phone] FOR RECORDS PERTAINING TO PATIENTS WHO ARE OR HAVE BEEN ENROLLED IN A CHEMICAL DEPENDENCY/SUBSTANCEABUSE PROGRAM, SOME INFORMATION MAY BE OMITTED. This clinical summary was aggregated from multiple sources. Caution should be exercised in using it in the provision of clinical care. This summary normalizes information from multiple sources, and as a consequence, information in this document may materially change the coding, format and clinical context of patient data. In addition, data may be omitted in some cases. CLINICAL DECISIONS SHOULD BE BASED ON THE PRIMARY CLINICAL RECORDS. [facility] [employer] provides no warranty or guarantee of the accuracy or completeness of information in this document.
[2023-04-13 16:04] LABS: Absolute Lymphocyte Count 3.28 X10^3/uL (0.83-4.51); Absolute Neutrophil Count 17.5 X10^3/uL (2.0-7.7); Basophil# 0.13 X10^3/uL; Basophil% 0.6 % (0-1); Eosinophil# 0.04 X10^3/uL; Eosinophils% 0.2 % (0-5); Hematocrit 39.2 % (37-47); Hemoglobin 12.8 g/dL (12.0-15.0); Lymphocyte # 3.28 X10^3/ul (0.83-4.51); Lymphocyte % 14.5 % (19-41); Mean Corp Hgb Conc 32.7 g/dL (32-36); Mean Corpuscular Hgb 30.5 pg (27.0-32.0); Mean Corpuscular Volume 93.3 fL (81-99); Mean Platelet Vol. 9.6 fl (6.2-12.0); Monocyte# 1.64 X10^3/uL; Monocyte% 7.2 % (0-10); NRBC Flagged by Analyzer 0 % (0-5); Neutrophil # 17.47 X10^3/uL (2.7-7.7); POSITIVE DIFFERENTIAL YES; Platelet Count 354 K/mm3 (150-450); RBC Distribution Width CV 12.7 % (11.6-14.6); RBC Distribution Width SD 43.6 fl (35.1-43.9); White Blood Count 22.7 K/mm3 (4.4-11.0)
[2023-04-13 16:30] LABS: Differential Indicated SCAN CRITERIA MET
[2023-04-13 16:41] LABS: ALB/GLOB Ratio 1.5 RATIO (0.9-2.4); AST(SGOT) 14 U/L (15-37); Alanine Aminotransfer ALT/SGPT 20 U/L (13-56); Albumin, Serum 4.3 g/dL (3.2-5.0); Alkaline Phosphatase 61 U/L (45-117); Anion Gap 4 (5-15); BUN 9 mg/dL (7-18); BUN/Creat Ratio 10.9 RATIO (10-20); Calcium,Total 9.7 mg/dL (8.5-10.1); Chloride 108 mmol/L (98-107); Creatinine, Serum 0.82 mg/dL (0.55-1.02); EST Glomerular Filtration Rate 88 mL/min (>60); Est Glom Filt Rate - Afr Amer 107 mL/min (>60); Globulin 2.8 g/dL (2.2-4.2); Glucose 92 mg/dL (74-106); Potassium 3.6 mmol/L (3.5-5.1); Protein, Total 7.1 g/dL (6.4-8.2); Sodium Level 140 mmol/L (136-145)
[2023-04-13 16:48] LABS: Differential Comment SCANNED
[2023-04-15 12:14] LABS: Pathologist Review Reviewed
== END | disposition home or self-care (01) ==
PROVIDERS: PCP Nurse Practitioner Family; Referring Provider Internal Medicine Rheumatology; Visit Provider Internal Medicine Rheumatology
DX: M06.4 Inflammatory polyarthropathy (principal); R76.8 Other specified abnormal immunological findings in serum; F41.9 Anxiety disorder, unspecified; F32.A Depression, unspecified; Z79.899 Other long term (current) drug therapy
CPT/HCPCS: 36415; 80053; 85025